=== PATIENT | female | born 1970 | race Caucasian/White ===

== ENCOUNTER → 2020-12-26 | Outpatient (CLI) | payer SELFPAY | LOC: M LABSMTC 12:51 | PROVIDERS: ATTEND Pediatrics | DX: Z11.52 Encounter for screening for COVID-19 (principal) ==

== ENCOUNTER → 2023-12-18 | Outpatient (CLI) | payer BC ==
[2023-12-18 17:57] LABS: HEMATOCRIT 38.5 % (36.0-47.0); HEMOGLOBIN 12.9 g/dl (12.0-15.5); MEAN CORPUSCULAR HEMOGLOBIN 32.5 pg (27.0-33.0); MEAN CORPUSCULAR HGB CONC 33.5 g/dl (32.0-36.5); PLATELET COUNT, AUTOMATED 263 10^3/uL (150-450); RED BLOOD COUNT 3.97 10^6/uL (4.00-5.40); WHITE BLOOD COUNT 5.8 10^3/uL (4.0-10.0)
[2023-12-18 18:16] LABS: CHOLESTEROL LEVEL 190 MG/DL (<200); CHOLESTEROL RISK RATIO 2.72 (<5); HDL CHOLESTEROL 69.7 MG/DL (>40); LDL CHOLESTEROL 99.9 MG/DL (<100); NON-HDL-C 120.3 MG/DL; TRIGLYCERIDES LEVEL 102 MG/DL (<150)
[2023-12-18 18:20] LABS: ESTRADIOL < 19.0 PG/ML; FREE T3 3.3 PG/ML (2.3-4.2); THYROID STIMULATING HORMONE 1.682 uIU/ML (0.55-4.78)
[2023-12-18 18:21] LABS: FREE T4 0.89 NG/DL (0.89-1.76)
[2023-12-18 18:23] LABS: PROGESTERONE < 0.21 NG/ML
[2023-12-20 10:08] LABS: TESTOSTERONE FREE (DIRECT) 2.9 pg/mL (0.0-4.2)
== END ==
LOC: M WUC 13:44
PROVIDERS: ATTEND Nurse Practitioner Family
DX: N95.1 Menopausal and female climacteric states (principal)

== ENCOUNTER 2024-06-04 13:43 | Emergency (ER) | payer BC ==
[~2024-06-04] VITALS: Ht 170.2 cm; Wt 86.2 kg
[2024-06-04] MEDS ORDERED: METH2.5T48 (14:14)
[2024-06-04] MEDS ORDERED: ETAN50PE (14:14)
[2024-06-04] MEDS ORDERED: FOLI1TAB11 PO (14:14)
[2024-06-04] MEDS ORDERED: BUPR-597 (14:14)
[2024-06-04] MEDS ORDERED: HYDR200T46 (14:14)
[2024-06-04] MEDS ORDERED: SEMA0.5P (14:14)
[2024-06-04] MEDS ORDERED: DEXM1CAP16 (14:14)
[2024-06-04] MEDS ORDERED: RABIES IMMUNE GLOBULIN 1500 INTERNATIONAL UNIT/5ML VIAL IM.IMMUN ONE (16:25)
[2024-06-04] MEDS: RABIES VACCINE HUMAN 2.5 INTERNATIONAL UNITS/ML VIAL IM ONE (17:15)
[2024-06-04] MEDS: RABIES IMMUNE GLOBULIN 300 INTERNATIONAL UNITS/1ML VIAL IM.IMMUN ONE (17:16)
[2024-06-04] MEDS: RABIES IMMUNE GLOBULIN 1500 INTERNATIONAL UNIT/5ML VIAL IM.IMMUN ONE (17:17)
[2024-06-04 17:32] VITALS: BP 144/92; TEMP 97.8; O2SAT 99
== END 2024-06-04 17:40 | disposition home or self-care (01) ==
LOC: M ED 13:43
DX: Z29.14 Encounter for prophylactic rabies immune globulin (principal); Z23 Encounter for immunization; Z88.0 Allergy status to penicillin; Z91.040 Latex allergy status; Z79.899 Other long term (current) drug therapy; Z79.4 Long term (current) use of insulin

== ENCOUNTER 2024-06-07 15:07 | Emergency (ER) | payer BC ==
[~2024-06-07] VITALS: Ht 170.2 cm; Wt 84.9 kg
[~2024-06-07 15:07] MED LIST: BUPR-597; DEXM1CAP16; ETAN50PE; FOLI1TAB11 PO; HYDR200T46; METH2.5T48; SEMA0.5P
[2024-06-07] MEDS: RABIES VACCINE HUMAN 2.5 INTERNATIONAL UNITS/ML VIAL (IMOVAX) IM ONE (15:56)
[2024-06-07 16:22] VITALS: BP 115/75; TEMP 97.8; O2SAT 98
== END 2024-06-07 16:24 | disposition home or self-care (01) ==
LOC: M ED 15:07
DX: Z29.14 Encounter for prophylactic rabies immune globulin (principal); Z23 Encounter for immunization; Z88.0 Allergy status to penicillin; Z91.040 Latex allergy status; Z91.048 Other nonmedicinal substance allergy status; Z79.899 Other long term (current) drug therapy